=== PATIENT | female | born 1970 | race Caucasian/White ===

== ENCOUNTER 2021-07-29 14:48 | Observation (INO) | payer OTHER ==
[~2021-07-29] VITALS: Ht 167.6 cm; Wt 59.9 kg
--- NOTE | ~2021-07-29 | EMS ---
[facility] [address] [place] [address] EMS Patient Care Report Name: ANGIE OCONNELL Room #: PRE M.R.#: [id number] Admission: Attend Phys: Discharge: Date of : 66 Report #: [id number] THIS REPORT FOR: //name// Report Transmitted: 07/29/2021 15:32 EMS Care Summary [place], [place]/[facility] Incident [id number] @ 07/29/2021 14:16 Incident Location [address] [place] [address] Patient ANGIE OCONNELL Female, 51 Years 1970 Patient Address [address] [place] [address] Patient History Thyroid Disease, Patient Allergies Sulfa, Patient Medications Levothyroxine, Chief Complaint headache Disposition Transported No Lights/[place] Dispatch Reason Headache Transported To [facility] Narrative pt found kneeling on floor, holding the back of her head. she c/o headache that started 4 days go. she has been to her Dr and he put her on Baclofen, [facility] [address] [place] [address] EMS Patient Care Report Name: ANGIE OCONNELL Room #: PRE ER M.R.#: [id number] Admission: Attend Phys: Discharge: Date of : 66 Report #: [id number] thinking it was a tension headache/migraine. she has a CT scheduled in the near future. her pain got a little better but today is much worse again. she is holding an icepack to the back of her head where the pain is the worst. she req eval at [facility], [facility]. pt assist to cot, VS, transport w/o change. 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 Initial Vitals @14:29P: 85,R: 18,BP: 186/107,Pain: 10/10,GCS: 15,SpO2: 99,Revised Trauma: 12, @14:37P: 82,BP: 179/109,SpO2: 99, Assessments @14:26MENTAL:No Abnormalities,SKIN:No Abnormalities,HEENT:Head/Face: Other,LUNG SOUNDS:ABDOMEN:PELVIS//GI:EXTREMITIES:PULSE:Radial: 2+ Normal,NEURO:No Abnormalities, Impression Headache Procedures @14:26 ALS Assessment Response: Unchanged @14:28 Stretcher Response: Unchanged Timeline 14:14,Call Received 14:14,Dispatch Notified 14:16,Dispatched 14:19,En Route 14:25,On Scene 14:26,At Patient 14:26,ALS Assessment,Response: Unchanged 14:28,Stretcher,Response: Unchanged 14:29,BP: 186/107 M,PULSE: 85,RR: 18 R,SPO2: 99 Ox,ETCO2: ,BG: ,PAIN: 10,GCS: 15, 14:31,Depart Scene 14:37,BP: 179/109 M,PULSE: 82,RR: R,SPO2: 99 Ox,ETCO2: ,BG: ,PAIN: ,GCS: , 14:44,At Destination 15:06,Call Closed Disclaimer v1.1 Copyright 2020 [employer] This EMS Care Summary contains data elements from the applicable legal record (which may be displayed differently). It is designed to provide pertinent information for the following purposes: continuity of care, clinical quality, and state data reporting. The complete legal record is available to ED staff and administrators of the receiving hospital in [employer]'s Patient Tracker. All data [address] [address] EMS Patient Care Report Name: ANGIE OCONNELL Room #: PRE KIANNA Ricci#: [id number] Admission: Attend Phys: Discharge: Date of : 66 Report #: [id number] is provided "as is."
[2021-07-29 14:59] VITALS: BP 178/103
[2021-07-29] MEDS ORDERED: SYNTHROID125 MC1 PO (15:24)
[2021-07-29] MEDS ORDERED: LIPITOR10 MG PO (15:24)
[2021-07-29] MEDS ORDERED: CLARITIN10 M3 PO (15:24)
[2021-07-29] MEDS ORDERED: VITAMIN D31250 MC1 PO (15:25)
[2021-07-29] MEDS ORDERED: IBU600 MG PO (15:25)
[2021-07-29 16:15] LABS: HEMATOCRIT 42.3 % (37.0-47.0); HEMOGLOBIN 14.3 gm/dL (12.0-15.0); MCH 31.8 pg (26.0-34.0); MCHC 33.8 g/dL (28.0-37.0); RBC 4.5 mil/uL (4.20-5.00); RDW 13.4 % (10.5-14.5); WBC 6.5 thou/uL (4.0-11.0)
[2021-07-29 16:24] LABS: CALCIUM 9.3 mg/dL (8.5-10.1); POTASSIUM 3.9 mmol/L (3.5-5.1)
[2021-07-29 16:30] LABS: TOTAL BILIRUBIN 0.3 mg/dL (0.2-1.0); TOTAL PROTEIN 7.6 g/dL (6.4-8.2)
[2021-07-30] VITALS (9 sets, daily range): BP systolic 116–174; BP diastolic 61–109
[2021-07-30] MEDS ORDERED: LIPITOR 20 MG T20 M1 PO (00:12)
[2021-07-30] MEDS ORDERED: LEVOTHYROXINE150 MC1 PO (00:13)
[2021-07-30 06:30] LABS: CALCIUM 9.2 mg/dL (8.5-10.1); POTASSIUM 3.9 mmol/L (3.5-5.1)
[2021-07-30 06:42] LABS: CHOLESTEROL 190 mg/dL (<200); HDL CHOLESTEROL 74 mg/dL (>40); LDL CHOLESTEROL 100 mg/dL (<100); TC:HDL 2.6 Ratio (Not establshd); TRIGLYCERIDE 82 mg/dL (<150); VLDL 16 mg/dL (<40)
[2021-07-30 06:47] LABS: SERUM ASSESSMENT Clear
--- NOTE | 2021-07-30 07:07 | EKG ---
[address] [place] [address] ELECTROCARDIOGRAM REPORT Name: ANGIE OCONNELL Room #: 170-11 ADM IN M.R.#: [id number] Admission: 07/29/21 Attend Phys: Alexander Dougherty MD Discharge: Date of : 66 Report #: [id number] [facility] ED Test Date: 2021-07-29 Test Time: 18:21:22 Pat Name: ANGIE OCONNELL Department: Room: 170 Gender: F Truck Assembler: : 1970 Requested By: Hayley Gonzalez Order Number: [id number] : Bobo Hernandez Measurements Intervals Antoine Rate: 69 P: 76 PA: 157 QRS: 29 QRSD: 91 T: 52 QT: 415 QTc: 445 Interpretive Statements Sinus rhythm Probable left atrial enlargement Low voltage, precordial leads Nonspecific T abnormalities, anterior leads No previous ECG available for comparison Electronically Signed On 07-30-2021 7:06:48 MEDICAL CUSTOMER SERVICE REPRESENTATIVE by Bobo Hernandez [email or web address] <ELECTRONICALLY SIGNED> By: Bobo Hernandez MD, [facility] 07/30/21705 20 182 Bobo Hernandez MD, FACC /EPI
--- NOTE | 2021-07-30 13:34 | NUR ---
LUNCH TRAY GIVEN TO PATIENT. PT AWAKE AND STATES SHE IS HUNGRY. NO OTHER COMPLAINTS AT THIS TIME. WILL CONTINUE TO MONITOR
--- NOTE | 2021-07-30 22:44 | HC ---
[facility] [place] [address] CONSULTATION Name: ANGIE OCONNELL Room #: 445-P ADM IN M.R.#: [id number] Admission: 07/29/21 Attend Phys: Alexander Dougherty MD Discharge: Date of : 66 Report #: [id number] THIS REPORT FOR: cc: Isabela Gregorio Stefany RNP Khosla, Parveen K. MD ~ DATE OF SERVICE: 07/30/2021 HISTORY OF PRESENT ILLNESS: This is a 51-year-old female patient who was seen by me for headache. She said the headache started about Tuesday, then it became better, then it became worse again. Headache is generalized, it is bilateral, it is more prominent in the back portion, it came suddenly. She had a CT angiogram of the head and neck done by Emergency Room physician and that was unremarkable. Headache is better, but it is not resolved. Review of the records from the Emergency Room indicates that she had ____ blood pressure of 166/102. She was given Decadron, hydralazine and Toradol in the Emergency Room. Blood pressure did come down and it also looks like the patient was given Keppra and Haldol in the Emergency Room. REVIEW OF SYSTEMS. She says she does not have any prior history of headaches. She does not have a known history of migraine headache. She is under a lot of stress. A 14-point review of systems was otherwise mostly unremarkable. She does complain of some nonspecific symptoms in the eye. She does have a history of hypothyroidism. Has a history of high cholesterol. She has a prior history of a tubal ligation. This was a relevant 14-point review of systems. PAST MEDICAL HISTORY: Negative for any migraine headache. FAMILY HISTORY: Positive for migraine headache. SOCIAL HISTORY: She drinks alcohol weekly and she smokes. PHYSICAL EXAMINATION: Indicate that she is alert, responsive, able to follow simple commands. Cranial nerve examination II-XII looks unremarkable except I cannot look at the patient's fundus. She moves all 4 extremities. Reflexes are symmetrical. Position sense is intact. Plantars are mute. She does not appear to be ataxic. She does complain of neck pain when I move her neck, both in flexion and extension. Cardiac examination is unremarkable. Pulses are palpable. She has no edema, cyanosis or jaundice. Blood pressure is 136/82, respirations are 16, pulse is 83, temperature is 97.6. LABORATORY DATA: Normal white count 6.5. Normal GFR. Vital signs indicate that she has been afebrile since she has been here. [address] [address] CONSULTATION Name: ANGIE OCONNELL Room #: 445-P [facility] IN M.R.#: [id number] Admission: 07/29/21 Attend Phys: Alexander Dougherty MD Discharge: Date of : 66 Report #: [id number] IMPRESSION: New onset of headache of unknown etiology. CT angiogram is normal, indicating that it is unlikely it is anything like aneurysm. MRI was scheduled. I made the MRI with and without contrast. I discussed the indication, potential complication and alternative of MRI contrast with the patient including irreversible dermatological reaction. She wants to proceed with MRI. She is obese and she is having this new onset of headache. One of the differentials is pseudotumor cerebri. Therefore, I recommended spinal tap. She does not want to proceed with spinal tap. She wants to think about that. If she is agreeable for spinal tap, then we will be happy to set it up. I will go ahead and check a PT, PTT in this patient in case she agree for spinal tap in future, but presently she does not want to do that. Thank you very much for this referral and if you have any questions, please feel free to contact me. <ELECTRONICALLY SIGNED> By: King Ramsey MD 07/30/21 [id number] [id number] King Ramsey MD /nt
--- NOTE | 2021-07-31 04:00 | NUR ---
ASSUMED CARE OF PT AT 1900. BEDSIDE REPORT RECIEVED. BALDEMAR ASSESSMENT COMPLETE. PT ADMITTED AND ORIENTED TO ROOM. PT TEARFUL C ELEVATED BP C/O 10/10 HEADACHE PAIN. NOTIFIED SABI RYAN KOSHER BUTCHER, NEW ORDERS FOLLOWED, MEDS GIVEN. PT COMFORTABLY SLEEPING NOW. LAC PIV CDI, PATENT AND SALINE LOCKED. ALL NEEDS MET, CALL LIGHT IN REACH
[2021-07-31 04:39] LABS: APTT 28.4 Seconds (24.5-32.8); PROTIME 10.9 Seconds (10.5-12.1)
[2021-07-31 04:54] LABS: CALCIUM 9.6 mg/dL (8.5-10.1)
--- NOTE | 2021-07-31 04:56 | NUR ---
ADMISSION ASSESSMENT COMPLETED. I AGREE WITH NURSE PARKER ON THE CHARTING OF THIS PT.
[2021-07-31 05:00] LABS: HEMOGLOBIN 14.6 gm/dL (12.0-15.0); MCH 32.1 pg (26.0-34.0); MCHC 33.9 g/dL (28.0-37.0); MCV 94.5 fL (80.0-100.0); POTASSIUM 4.5 mmol/L (3.5-5.1); RBC 4.55 mil/uL (4.20-5.00); RDW 13.2 % (10.5-14.5); WBC 7.6 thou/uL (4.0-11.0)
[2021-07-31 08:31] VITALS: BP 117/81
[2021-07-31 16:04] VITALS: BP 122/87
--- NOTE | 2021-07-31 16:22 | NUR ---
51-year-old female with a history of hyperlipidemia, hypothyroidism, and seasonal allergies who presents to the ED with c/o headache that began 3 days ago while tending to her horse and progressively worsened today. dizziness is worse upon standing and she describes her dizziness as a room spinning sensation. Neurology was consulted. Visited with kris at bedside. Intro to cm and dcp. A & o x 3, and able to make her needs know. Lives alone in a 4 plex. No dme, works outside the home. No stairs. No hh or rehab in the past. No contacts, she reports she will have support from friends and family if needed. Discussed with attending physician. Anticipated dc today, home no needs. Will cont following as needed.
[2021-07-31 16:23] LABS: CSF GLUCOSE 78 mg/dL (40-70); CSF PROTEIN 43 mg/dL (15-45)
[2021-07-31 16:52] VITALS: BP 135/95
[2021-07-31 17:45] VITALS: BP 125/86
[2021-07-31 17:48] VITALS: BP 125/86
[2021-07-31 20:33] VITALS: BP 123/78
[2021-07-31 20:48] LABS: CSF CLARITY CLEAR; CSF COLOR COLORLESS; CSF RBC 2.2 /mm3; CSF WBC 1.1 /mm3 (0-10); VOLUME 11 ml
[2021-07-31 20:49] LABS: CSF OTHER 1 LYMPH SEEN
--- NOTE | 2021-08-01 03:10 | NUR ---
ASSUMED CARE OF PT AT 1900. BEDSIDE REPORT RECIEVED. BALDEMAR ASSESSMENT COMPLETE. PT C/O 04/21 HEADACHE PAIN. PAIN MEDS GIVEN ACCORDINLY WITH MODERATE RELIEF. DENIES NAUSEA OR VOMITTING. L AC PIV CDI, SALINE LOCKED. PT UP ADLIB TO BATHROOM. FALL EDUCATION PROVIDED. HOURLY ROUNDING CONTINUING. CALL LIGHT IN REACH
[2021-08-01 08:02] VITALS: BP 112/78
--- NOTE | 2021-08-01 09:54 | NUR ---
A/O X 4. ROOM AIR. AD JOSE. LEFT PIV SALINE LOCKED. HEAD PAIN 6/10 TYLENOL GIVEN. TELE SR.
[2021-08-01] MEDS ORDERED: FLEXERIL PO (15:16)
== END 2021-08-01 16:09 | disposition home or self-care (01) ==
LOC: ER 14:48 → 4S 19:36 → EROBS 19:36 → 4S 19:36
PROVIDERS: Nurse Practitioner Family; Psychiatry & Neurology Neuromuscular Medicine; ADMIT Hospitalist; ATTEND Hospitalist
DX: R51.9 Headache, unspecified (principal); I10 Essential (primary) hypertension; E78.5 Hyperlipidemia, unspecified; E03.9 Hypothyroidism, unspecified; Z20.822 Contact with and (suspected) exposure to COVID-19; R11.2 Nausea with vomiting, unspecified; H53.149 Visual discomfort, unspecified; Z79.899 Other long term (current) drug therapy; Z79.01 Long term (current) use of anticoagulants
CPT/HCPCS: 10100